=== PATIENT | female | born 1945 | race Caucasian/White ===

== ENCOUNTER → 2016-09-10 | Outpatient (CLI) | payer OTHER ==
[~2016-09-10] MED LIST: ADULT LOW DOSE81 MG PO; ALLERGY PO; ATIVAN1 MG PO; BUPROPION PO; CALCIUM 600 +1 EAC1 PO; IBUPROFEN 200200 M1 PO; IBUPROFEN200 M2; LORAZEPAM 0.50.5 MG PO; MULTIVITAMINS PO; OXYBUTYNIN 5 MG5 M1 PO; RESTORIL PO; SPIRIVA INH; ZOCOR; [UNRECOGNIZED DRUG - REMARK] PO
== END ==
LOC: RAD 16:45
DX: R53.83 Other fatigue (principal); R06.00 Dyspnea, unspecified; R06.02 Shortness of breath; J98.11 Atelectasis

== ENCOUNTER → 2016-11-08 | Outpatient (CLI) | payer OTHER | LOC: CAT 10:28 | DX: R91.1 Solitary pulmonary nodule (principal) ==

== ENCOUNTER → 2017-03-06 | Outpatient (CLI) | payer OTHER ==
[~2017-03-06] VITALS: Ht 160 cm; Wt 63.5 kg
[~2017-03-06] MED LIST changes: +ANTACID325 MG PO; +BREO ELLIPTA 11 EACH INH; -BUPROPION PO; +CHOLESTYRAMINE L4 GM PO; +HYDROCHLOROTH12.5 M1 PO; +MOBIC15 MG PO; +OMEPRAZOLE40 MG PO; +PROAIR HFA8.5 GM INH; -RESTORIL PO; +RESTORIL30 MG PO; +SERTRALINE HCL50 MG PO; +WELLBUTRIN XL300 MG PO; -ZOCOR; +ZOCOR20 MG PO
--- NOTE | ~2017-03-06 | S ---
[facility] [address] [place] [address] SURGICAL PATH RPT PROCEDURE Name: MIKY SINGH Room #: REG [facility].#: [id number] Admission: 03/06/17 Date of : 43 Discharge: Report #: [id number] Path Case #: [id number] PATHOLOGY REPORT COLLECTION DATE: 03/06/2017 RECEIVED DATE: 03/06/2017 SUBMITTING PHYS: Dr. Dru Elder OTHER PHYS: BYRON Smith SPECIMEN(S) RECEIVED: A.Bx gastritis B.Bx distal esophagus Hadley's C.Bx random colon * * * * * * * * * * * * FINAL DIAGNOSIS: A. Gastric mucosa, gastritis, endoscopic biopsy: - Moderate reactive gastropathy. - Negative for intestinal metaplasia or atrophy. - Negative for Helicobacter pylori. B. Gastroesophageal mucosa, distal esophagus Hadley's, endoscopic biopsy: - Specialized columnar epithelium (gastric cardia-type mucosa) with intestinal metaplasia, consistent with Hadley's metaplasia; negative for dysplasia. - Moderate chronic inflammation. - Squamous mucosa with mild esophagitis. C. Large intestinal mucosa, random colon, endoscopic biopsy: - Mild focal active colitis (please see comment). - Negative for dysplasia or malignancy. COMMENT: A: Well controlled Helicobacter pylori immunohistochemical stain performed on block A1-negative. C: Examination shows scattered rare focus of cryptitis, surface epithelial acute inflammation, as well as an increased cellularity of lamina propria comprised of lymphocytes, plasma cells, as well as eosinophils. Increased apoptotic bodies are identified within the surface epithelium as well. The crypts are present at regular intervals, without any loss or drop-out or architectural abnormalities. There are no viral inclusions present, granulomata present, or parasitic organisms identified. Findings may be suggestive of focal active colitis of self-limited type, infectious-type colitis, medication induced colitis, effect of bowel preparation, as well as acute diverticulitis. Please correlate clinically. (IUV:mgr; 03/07/2017) [facility] [address] [place] [address] SURGICAL PATH RPT PROCEDURE Name: MIKY SINGH Room #: REG [facility].#: [id number] Admission: 03/06/17 Date of : 43 Discharge: Report #: [id number] Path Case #: [id number] PATHOLOGIST: Kimberly Good M.D. REPORT ELECTRONICALLY SIGNED BY: Kimberly Good M.D. DATE/TIME: 03/07/2017 15:59 * * * * * * * * * * * * GROSS PATHOLOGY: A. Received in formalin labeled "Miky Singh, BX gastritis," are 3 segments of tapia soft tissue measuring 0.9 x 0.5 x 0.3 cm in aggregate dimensions and ranging from 0.4 to 0.5 cm in maximum dimension. The specimen is submitted entirely in cassette A1. B. Received in formalin labeled "Miky Singh, distal esophagus Hadley's," are 5 segments of tapia soft tissue measuring 1.2 x 0.4 x 0.3 cm in aggregate dimensions and ranging from 0.2 to 0.3 cm in maximum dimension. The specimen is submitted entirely in cassette B1. C. Received in formalin labeled "Miky Singh, BX random colon," are 5 segments of tapia soft tissue measuring 1.4 x 0.6 x 0.2 cm in aggregate dimensions and ranging from 0.3 to 0.4 cm in maximum dimension. The specimen is submitted entirely in cassette C1. (TSD; 03/06/2017) CLINICAL HISTORY: Pre-OP DX: Hx polyps, Hx Hadley's, GERD Post-OP DX: Hx polyps, diverticulosis INITIAL CPT CODE(S): A; 02805, 93177 B; 94015 C; 06048 Professional services performed by [facility] at [facility] [address], [place] [address] Technical services performed by [facility] [employer] at [address] [place] [address], [facility] [address], [place] [address]. [facility] [address] [place] [address] PHONE: [phone] DIRECTOR: Terrell Munguia M.D. * * * END OF REPORT * * *
--- NOTE | ~2017-03-06 | P ---
[facility] [place] [address] [place] [address] PROCEDURE REPORT Name: MIKY SINGH Room #: REG [facility]#: [id number] Admission: 03/06/17 Attend Phys: Dru Gtz Discharge: Date of : 43 Report #: [id number] THIS REPORT FOR: //name// CC: Dru Elder LAWRENCE IBANEZ BYRON Lawrence Ibanez DATE OF SERVICE: 03/06/2017 PROCEDURE PERFORMED: Colonoscopy with biopsies. HISTORY OF PRESENT ILLNESS: The patient is a 71-year-old female with a history of colon polyps, intermittent diarrhea. No family history of colon cancer. DESCRIPTION OF PROCEDURE: The risks and benefits of the procedure were explained to the patient, those risks including but not limited to bleeding, perforation, the risk of sedation. She understood these risks and gave informed consent. Sedation was given using propofol per anesthesia. Next, a digital rectal exam was initially performed, which was normal. Next, using a standard Fujinon colonoscope, the scope was placed in the patient's anus and advanced under direct vision to the cecum. The overall prep was excellent. The cecum and ileocecal valve were normal in appearance. Ascending, transverse and descending colon were normal. A few scattered diverticula were noted in the sigmoid colon, no evidence of inflammation. Because of her intermittent diarrhea, random biopsies were obtained today to rule out the possibility of microscopic colitis. The rectal mucosa was normal. On retroflexion, no abnormalities were noted. The scope was then withdrawn and the procedure terminated. The patient tolerated the procedure well. IMPRESSION: 1. Sigmoid diverticulosis. 2. Otherwise, normal colonoscopy. RECOMMENDATION: Await biopsy results. Thank you for allowing me to participate in her care. <ELECTRONICALLY SIGNED> By: Dru Elder MD 03/08/17 0935 1053 1205 Dru Elder MD /nt
--- NOTE | ~2017-03-06 | P ---
[facility] [place] [address] [place] [address] PROCEDURE REPORT Name: MIKY SINGH Room #: REG [facility]#: [id number] Admission: 03/06/17 Attend Phys: Dru Gtz Discharge: Date of : 43 Report #: [id number] THIS REPORT FOR: //name// CC: Dru Elder LAWRENCE IBANEZ BYRON Lawrence Ibanez DATE OF SERVICE: 03/06/2017 PROCEDURE PERFORMED: Upper endoscopy with biopsies and esophageal dilation. HISTORY OF PRESENT ILLNESS: The patient is a 71-year-old female with a history of gastroesophageal reflux disease, Hadley's esophagus and daily vomiting, which she describes with mostly pills. She does report some dysphagia. She denies any nausea. Plan is for upper endoscopy. DESCRIPTION OF PROCEDURE: The risks and benefits of the procedure were explained to the patient, those risks including but not limited to bleeding, perforation, the risk of sedation. She understood these risks and gave informed consent. Sedation was given using propofol per anesthesia. Next, using a standard [employer] upper endoscope, the scope was placed in the patient's mouth and advanced under direct vision through the esophagus, stomach and into the second portion of the duodenum. The upper and mid esophagus were normal in appearance. In the distal esophagus, there was approximately 2-3 cm segment of Hadley's esophagus. Biopsies were obtained, was somewhat tortuous at the distal esophagus, but no stricture was noted. Upon entering the stomach, a hiatal hernia was noted. There was a mild diffuse gastritis. Biopsies were obtained to rule out H. pylori. The pylorus was normal and patent. The duodenal bulb, first and second portion were all normal. The scope was then brought back up into the patient's stomach and a Savary guidewire was inserted through the scope, leaving the guidewire in place as the scope was then withdrawn. Next, a 48-Tamazight Savary dilation of the esophagus was then performed without difficulty. The wire and dilator removed. The scope was reintroduced into the patient's stomach. There was no evidence of mucosal tear after dilation. The scope was then withdrawn and the procedure terminated. The patient tolerated the procedure well. IMPRESSION: 1. Short segment Hadley's esophagus. 2. Hiatal hernia. 3. Gastritis. 4. Otherwise, normal upper endoscopy. RECOMMENDATIONS: 1. Await biopsy results. 2. Observe the patient post-dilation. [address] [address] PROCEDURE REPORT Name: MIKY SINGH Room #: REG [facility]#: [id number] Admission: 03/06/17 Attend Phys: Dru Gtz Discharge: Date of : 43 Report #: [id number] 3. Continue PPI therapy. Thank you for allowing me to participate in her care. <ELECTRONICALLY SIGNED> By: Dru Elder MD 03/08/17 0935 1047 1202 Dru Elder MD /juno
== END | disposition home or self-care (01) ==
LOC: GI 08:18
DX: K57.30 Diverticulosis of large intestine without perforation or abscess without bleeding (principal); K31.9 Disease of stomach and duodenum, unspecified; K29.50 Unspecified chronic gastritis without bleeding; K20.9 Esophagitis, unspecified; K52.9 Noninfective gastroenteritis and colitis, unspecified; K21.9 Gastro-esophageal reflux disease without esophagitis; R13.19 Other dysphagia; K22.70 Barrett's esophagus without dysplasia; K44.9 Diaphragmatic hernia without obstruction or gangrene; I10 Essential (primary) hypertension; J42 Unspecified chronic bronchitis; J43.9 Emphysema, unspecified; E78.5 Hyperlipidemia, unspecified; M85.80 Other specified disorders of bone density and structure, unspecified site; F32.89 Other specified depressive episodes; F41.8 Other specified anxiety disorders; F17.210 Nicotine dependence, cigarettes, uncomplicated; Z85.828 Personal history of other malignant neoplasm of skin; Z87.19 Personal history of other diseases of the digestive system; Z90.710 Acquired absence of both cervix and uterus; Z90.49 Acquired absence of other specified parts of digestive tract; Z98.41 Cataract extraction status, right eye; Z98.42 Cataract extraction status, left eye; Z79.899 Other long term (current) drug therapy
CPT/HCPCS: 62110

== ENCOUNTER → 2017-07-23 | Outpatient (CLI) | payer OTHER | LOC: RAD 14:05 | DX: M51.36 Other intervertebral disc degeneration, lumbar region (principal); M41.86 Other forms of scoliosis, lumbar region; M16.11 Unilateral primary osteoarthritis, right hip ==

== ENCOUNTER → 2017-10-25 | Outpatient (CLI) | payer OTHER | LOC: CAT 14:09 | DX: R91.8 Other nonspecific abnormal finding of lung field (principal); I25.10 Atherosclerotic heart disease of native coronary artery without angina pectoris; K44.9 Diaphragmatic hernia without obstruction or gangrene; Z90.49 Acquired absence of other specified parts of digestive tract ==

== ENCOUNTER → 2019-01-09 | Outpatient (CLI) | payer OTHER | LOC: CAT 01-08 09:30 | DX: J84.10 Pulmonary fibrosis, unspecified (principal); R91.8 Other nonspecific abnormal finding of lung field; I25.10 Atherosclerotic heart disease of native coronary artery without angina pectoris; K75.3 Granulomatous hepatitis, not elsewhere classified; J98.11 Atelectasis; K44.9 Diaphragmatic hernia without obstruction or gangrene; Z90.49 Acquired absence of other specified parts of digestive tract; Z88.8 Allergy status to other drugs, medicaments and biological substances ==

== ENCOUNTER → 2019-04-27 | Outpatient (CLI) | payer OTHER | LOC: CAT 13:41 | DX: R91.8 Other nonspecific abnormal finding of lung field (principal) ==

== ENCOUNTER → 2019-10-19 | Outpatient (CLI) | payer OTHER | LOC: CAT 10-16 12:12 | DX: J84.10 Pulmonary fibrosis, unspecified (principal); I25.10 Atherosclerotic heart disease of native coronary artery without angina pectoris; M47.816 Spondylosis without myelopathy or radiculopathy, lumbar region; M19.011 Primary osteoarthritis, right shoulder; R91.8 Other nonspecific abnormal finding of lung field ==

== ENCOUNTER 2019-10-30 10:48 | Emergency (ER) | payer OTHER ==
[~2019-10-30] VITALS: Ht 160 cm; Wt 61.2 kg
[2019-10-30] MEDS ORDERED: PANTOPRAZOLE SO40 M1 PO (11:12)
[2019-10-30] MEDS ORDERED: TRELEGY ELLIPT1 EACH INH (11:13)
[2019-10-30 11:45] LABS: ABSOLUTE NEUTROPHILS 8.7 thou/uL (1.4-8.2); BASOPHILS 0.9 % (0.0-2.0); EOSINOPHILS 5.4 % (0.0-3.0); HEMATOCRIT 36.4 % (37.0-47.0); HEMOGLOBIN 11.8 gm/dL (12.0-15.0); LYMPHOCYTES 16.9 % (24.0-44.0); MCH 25.9 pg (26.0-34.0); MCHC 32.3 g/dL (28.0-37.0); MCV 80.1 fL (80.0-100.0); MONOCYTES 9.6 % (1.0-8.0); PLATELET COUNT 387 thou/uL (150-400); POLYS 67.2 % (36.0-66.0); RBC 4.55 mil/uL (4.20-5.00); RDW 17.1 % (10.5-14.5); WBC 12.9 thou/uL (4.0-11.0)
[2019-10-30 12:12] LABS: ALBUMIN 3.6 g/dL (3.4-5.0); CALCIUM 9.4 mg/dL (8.5-10.1); CREATININE 1.2 mg/dL (0.6-1.0); TOTAL BILIRUBIN 0.5 mg/dL (0.2-1.0); TOTAL PROTEIN 7.1 g/dL (6.4-8.2)
[2019-10-30 12:15] LABS: POTASSIUM 2.7 mmol/L (3.5-5.1)
[2019-10-30 12:53] LABS: APTT 25.7 Seconds (24.5-32.8); PROTIME 10.2 Seconds (9.3-11.4)
[2019-10-30 13:32] LABS: URINE BILIRUBIN NEGATIVE (Negative); URINE BLOOD 1+ (Negative); URINE CLARITY CLEAR; URINE COLOR YELLOW; URINE GLUCOSE-RANDOM* NEGATIVE (Negative); URINE KETONES NEGATIVE (Negative); URINE LEUKOCYTES-REFLEX NEGATIVE (Negative); URINE NITRITE-REFLEX NEGATIVE (Negative); URINE PROTEIN (DIPSTICK) NEGATIVE (Negative); URINE SPECIFIC GRAVITY <= 1.005 (1.005-1.035); URINE UROBILINOGEN 0.2 E.U./dl (0.2-1.0)
[2019-10-30 13:40] LABS: SQUAMOUS 0-3 Few /LPF (0-3)
[2019-10-30 13:41] LABS: BACTERIA-REFLEX 1-9 Few /HPF (None Seen); CRYSTALS None Seen /LPF (None Seen); HYALINE CASTS 0-3 Few /LPF (None Seen); URINE RBC 0-2 Rare /HPF (0-2); URINE WBC-REFLEX None Seen /HPF (0-5)
[2019-10-30] MEDS ORDERED: ANUSOL-HC25 MG RECTAL (14:49)
[2019-10-30] MEDS ORDERED: TRAMADOL 50 MG50 MG PO (14:49)
[2019-10-30] MEDS ORDERED: POTASSIUM20 PO (14:57)
[2019-10-30 15:09] VITALS: BP 138/57
--- NOTE | 2019-10-31 10:10 | EKG ---
[facility] [place] [address] ELECTROCARDIOGRAM REPORT Name: MIKY SINGH Room #: [facility]#: [id number] Admission: 10/30/19 Attend Phys: Discharge: 10/30/19 Date of : 43 Report #: [id number] THIS REPORT FOR: cc: Lizzy Saha DNP, Mary E. DNP Park, Jin S. 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 : 1945 Requested By: Kelton Bermudez Order Number: [id number] MD: Odilon Hoyt Measurements Intervals Kite Rate: 76 P: 35 WI: 191 QRS: -27 QRSD: 101 T: -67 QT: 416 QTc: 468 Interpretive Statements Sinus rhythm Borderline left axis deviation Borderline low voltage, extremity leads Abnormal R-wave progression, early transition Nonspecific repol abnormality, diffuse leads Compared to ECG 12/22/2010 16:59:21 Early repolarization now present T-wave abnormality no longer present Electronically Signed On 10-31-2019 10:09:11 CDT by Odilon Hoyt [email or web address] <ELECTRONICALLY SIGNED> By: Odilon Hoyt MD 10/31/19 1009 1134 1134 Odilon Hoyt MD /EPI
== END 2019-10-30 15:09 | disposition home or self-care (01) ==
LOC: ER 10:48
PROVIDERS: Emergency Medicine
DX: R10.30 Lower abdominal pain, unspecified (principal); K62.5 Hemorrhage of anus and rectum; R11.10 Vomiting, unspecified; R42 Dizziness and giddiness; E87.6 Hypokalemia; R79.89 Other specified abnormal findings of blood chemistry; I10 Essential (primary) hypertension; J44.9 Chronic obstructive pulmonary disease, unspecified; F17.210 Nicotine dependence, cigarettes, uncomplicated; E78.5 Hyperlipidemia, unspecified; Z79.899 Other long term (current) drug therapy

== ENCOUNTER → 2020-02-02 | Outpatient (CLI) | payer OTHER ==
[~2020-02-02] MED LIST changes: +ANUSOL-HC25 MG RECTAL; +PANTOPRAZOLE SO40 M1 PO; +POTASSIUM20 PO; +TRAMADOL 50 MG50 MG PO; +TRELEGY ELLIPT1 EACH INH
== END ==
LOC: LAB 14:27
PROVIDERS: ATTEND Pediatrics
DX: Z01.812 Encounter for preprocedural laboratory examination (principal); R05 Cough; R06.02 Shortness of breath; J02.9 Acute pharyngitis, unspecified; Z20.828 Contact with and (suspected) exposure to other viral communicable diseases

== ENCOUNTER → 2020-10-13 | Outpatient (CLI) | payer OTHER | LOC: CAT 08:33 | PROVIDERS: ATTEND Pediatrics | DX: Z12.2 Encounter for screening for malignant neoplasm of respiratory organs (principal); F17.210 Nicotine dependence, cigarettes, uncomplicated ==

== ENCOUNTER → 2021-01-09 | Outpatient (CLI) | payer OTHER | LOC: SJCVCIMAG 07:20 | PROVIDERS: ATTEND Internal Medicine | DX: I08.3 Combined rheumatic disorders of mitral, aortic and tricuspid valves (principal); J44.9 Chronic obstructive pulmonary disease, unspecified; R06.09 Other forms of dyspnea; R53.83 Other fatigue; M79.605 Pain in left leg; M79.604 Pain in right leg; F17.200 Nicotine dependence, unspecified, uncomplicated ==

== ENCOUNTER → 2021-01-16 | Outpatient (CLI) | payer OTHER | LOC: SJCVCIMAG 07:14 | PROVIDERS: ATTEND Internal Medicine | DX: I65.23 Occlusion and stenosis of bilateral carotid arteries (principal); I49.3 Ventricular premature depolarization; R20.0 Anesthesia of skin; R20.2 Paresthesia of skin; I10 Essential (primary) hypertension; R06.09 Other forms of dyspnea; E78.5 Hyperlipidemia, unspecified; R06.02 Shortness of breath; R53.83 Other fatigue; R94.31 Abnormal electrocardiogram [ECG] [EKG]; R07.9 Chest pain, unspecified; I73.9 Peripheral vascular disease, unspecified; M17.11 Unilateral primary osteoarthritis, right knee; M16.11 Unilateral primary osteoarthritis, right hip; K22.70 Barrett's esophagus without dysplasia; J44.9 Chronic obstructive pulmonary disease, unspecified; M51.36 Other intervertebral disc degeneration, lumbar region; K57.90 Diverticulosis of intestine, part unspecified, without perforation or abscess without bleeding; K44.9 Diaphragmatic hernia without obstruction or gangrene; G47.00 Insomnia, unspecified; F17.210 Nicotine dependence, cigarettes, uncomplicated; Z79.899 Other long term (current) drug therapy; Z88.8 Allergy status to other drugs, medicaments and biological substances ==

== ENCOUNTER → 2021-02-06 | Outpatient (CLI) | payer OTHER | LOC: CAT 13:21 | PROVIDERS: ATTEND Nurse Practitioner | DX: M47.812 Spondylosis without myelopathy or radiculopathy, cervical region (principal); K44.9 Diaphragmatic hernia without obstruction or gangrene; K57.30 Diverticulosis of large intestine without perforation or abscess without bleeding; R10.30 Lower abdominal pain, unspecified; R19.7 Diarrhea, unspecified; M54.2 Cervicalgia; K83.9 Disease of biliary tract, unspecified ==

== ENCOUNTER → 2021-03-24 | Outpatient (CLI) | payer OTHER | LOC: RAD 09:45 | PROVIDERS: ATTEND Pediatrics | DX: R06.02 Shortness of breath (principal); J98.4 Other disorders of lung; K44.9 Diaphragmatic hernia without obstruction or gangrene ==